=== PATIENT | female | born 1955 | race Two or more races ===

== ENCOUNTER 2022-02-15 18:04 | Emergency (ER) | payer MEDICAID, OTHER ==
[~2022-02-15] VITALS: Ht 121.9 cm; Wt 79.4 kg
[2022-02-15 18:06] VITALS: BP 112/73
== END 2022-02-15 23:00 | disposition left against medical advice (07) ==
LOC: ER 18:04
DX: M25.571 Pain in right ankle and joints of right foot (principal); M19.071 Primary osteoarthritis, right ankle and foot; K21.9 Gastro-esophageal reflux disease without esophagitis; Z90.49 Acquired absence of other specified parts of digestive tract
CPT/HCPCS: 73600